=== PATIENT | female | born 1965 | race African-American/Black ===

== ENCOUNTER 2018-07-20 13:39 | Emergency (ER) | payer OTHER ==
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
[2018-07-20 16:26] VITALS: BP 114/83
== END 2018-07-20 16:26 | disposition home or self-care (01) ==
LOC: ER 13:39
DX: M54.2 Cervicalgia (principal); R51 Headache; M54.6 Pain in thoracic spine; H53.8 Other visual disturbances; V87.7XXA Person injured in collision between other specified motor vehicles (traffic), initial encounter
CPT/HCPCS: 99284; 72125; L0120